=== PATIENT | female | born 1990 | race Caucasian/White ===

== ENCOUNTER 2016-05-07 19:29 | Emergency (ER) | payer OTHER ==
[2016-05-07 19:40] VITALS: BP 130/87; PULSE 85; TEMP 98.4; BMI 22.3
[2016-05-07 20:36] LABS: URINE APPEARANCE CLEAR; URINE BILIRUBIN NEGATIVE (NEGATIVE); URINE COLOR LTYELLOW; URINE GLUCOSE (UA) NEGATIVE (NEGATIVE); URINE KETONE TRACE (NEGATIVE); URINE NITRITE NEGATIVE (NEGATIVE); URINE PROTEIN NEGATIVE (NEGATIVE); URINE UROBILINOGEN NEGATIVE E.U./dl (0.2-1.0)
[2016-05-07 20:37] LABS: URINE BLOOD 2+ (NEGATIVE); URINE LEUK ESTERASE 2+ (NEGATIVE)
[2016-05-07 20:38] LABS: URINE BACTERIA RARE /hpf (NONE SEEN); URINE HYALINE CAST 3 /lpf; URINE MUCUS RARE; URINE RBC 12 /hpf (0-3); URINE WBC 5 /hpf (3-5)
--- NOTE | 2016-05-07 20:43 | PDOC ---
History of Present Illness - General Chief Complaint: Sore Throat Stated Complaint: SORE THROAT/EMPLOYEE Time Seen by Provider: 05/07/16 19:43 History Source: Patient Exam Limitations: No Limitations - History of Present Illness Initial Comments: 05/07/16 20:29 25yo Female patient presents to ED c/o sore throat x 2 days. Patient states last night experiencing sore throat which progressed to fatigue, hot flashes, SOB, chest heaviness with coughing today while at work. OTC: Tylenol cough and cold with minimal relief. LNMP: 1 month ago. 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 Denies any other complaints. Timing/Duration: reports: changing over time Severity: reports: moderate Possible Cause: Yes: illness exposure Modifying Factors: worse with: activity, albuterol inhaler, albuterol nebulizer , antibiotics, coughing, lying down, oxygen, rest, other Associated Symptoms: reports: cough, muscle aches, nasal congestion, shortness of breath, sore throat Aspirin Received prior to arrival: No: no aspirin today, unknown, 81 mg x 1, 81 mg x 2, 81 mg x 3, 81 mg x 4, 325 mg x 1, provided at home, provided by EMS, provided by ED ASA Contraindications(Core Measure): No: Allergy, Other, Active Blding w/i 24 hrs., Plavix, Receiving Warfarin Beta Ilsa Given by EMS(Core Measure): No Beta Ilsa Taken at Home(Core Measure): No Beta Ilsa Not Indicated at this Time(Core Measure): No Past History - Travel Traveled outside of the country in the last 30 days: No Close contact w/someone who was outside of country & ill: No - Past Medical History Allergies/Adverse Reactions: Allergies Allergy/AdvReac Type Severity Reaction Status Date / Time No Known Allergies Allergy Verified 05/07/16 19:38 Home Medications: Ambulatory Orders Azithromycin [Zithromax -] 250 mg PO DAILY #4 tablet 05/07/16 Norgestimate-Ethinyl Estradiol [Ortho Tri-Cyclen Lo Tablet] 1 each PO DAILY - Immunization History Immunization Up to Date: Yes - Psycho/Social/Smoking Cessation Hx Anxiety: No Suicidal Ideation: No Smoking History: Never smoked Hx Alcohol Use: No Drug/Substance Use Hx: No Respiratory Specific PMHX - Complaint Specific PMHX Angina: No Bronchitis: No Pneumonia: No Pulmonary Embolus: No TB (Tuberculosis): No Review of Systems - Review of Systems Able to Perform ROS?: Yes Is the patient limited Green[place]ic proficient: No Constitutional: Yes: Malaise. No: Chills, Fever Respiratory: Yes: Cough, Shortness of Breath Cardiac (ROS): Yes: Chest Tightness (w coughing) ABD/GI: No: Constipated, Diarrhea, Nausea, Vomiting : No: Dysuria, Discharge, Frequency, Flank Pain, Hematuria, Pain, Urgency Musculoskeletal: Yes: Muscle Pain. No: Back Pain Integumentary: No: Rash, Sweating Neurological: No: Headache, Weakness, Dizziness All Other Systems: Reviewed and Negative *Physical Exam - Vital Signs Last Vital Signs Temp Pulse Resp BP Pulse Ox 98.4 F 85 18 130/87 99 05/07/16 19:39 05/07/16 19:39 05/07/16 19:39 05/07/16 19:39 05/07/16 19:39 - Physical Exam General Appearance: Yes: Nourished, Appropriately Dressed. No: Apparent Distress, Mild Distress, Moderate Distress, Severe Distress HEENT: positive: EOMI, XIMENA, Normal ENT Inspection, Normal Voice, Symmetrical, TMs Normal, Pharynx Normal. negative: Pharyngeal Erythema, Tonsillar Exudate, Tonsillar Erythema, Nasal Congestion, Rhinorrhea, TM Bulging, TM Dull, TM Erythema Neck: positive: Trachea midline, Normal Thyroid, Supple, Lymphadenopathy (R), Lymphadenopathy (L). negative: Tender, Rigid, Decreased range of motion, Stridor, Tender lateral, Tender midline Respiratory/Chest: positive: Lungs Clear, Normal Breath Sounds. negative: Respiratory Distress, Accessory Muscle Use, Labored Respiration, Rapid RR Cardiovascular: positive: Regular Rhythm, Regular Rate Gastrointestinal/Abdominal: positive: Normal Bowel Sounds, Soft Musculoskeletal: positive: Normal Inspection. negative: CVA Tenderness Extremity: positive: Normal Capillary Refill, Normal Inspection, Normal Range of Motion Integumentary: positive: Normal Color, Dry, Warm Neurologic: positive: mobile marketing specialist II-XII NML intact, Fully Oriented, Alert, Normal Mood/ Affect, Normal Response, Motor Strength 5/5 *DC/Admit/Observation/Transfer Diagnosis at time of Disposition: Viral pharyngitis - Discharge Dispostion Disposition: HOME Condition at time of disposition: Stable Admit: No - Prescriptions Prescriptions: Azithromycin [Zithromax -] 250 mg PO DAILY #4 tablet - Referrals Referrals: Elyse Carmichael [Primary Care Provider] - - Patient Instructions Printed Discharge Instructions: DI for Viral Pharyngitis Additional Instructions: FOLLOW UP WITH YOUR PRIMARY CARE PROVIDER. CALL TO SCHEDULE APPOINTMENT. DRINK LOTS OF WATER. MOTRIN OR TYLENOL FOR PAIN NEEDED. IF SYMPTOMS WORSEN, RETURN FOR FURTHER EVALUATION. TAKE MEDICATIONS PRESCRIBED. Print Language: [place] - Post Discharge Activity Work/School Note: Back to Work
[2016-05-07] MEDS ORDERED: AZITHROMYCIN 250 MG TABLET (FP) PO ONE (20:55)
[2016-05-07] MEDS ORDERED: IBUPROFEN 600 MG TABLET (FP) PO ONE ×2 (20:56→20:59)
[2016-05-07] MEDS ORDERED: AZITHROMYCIN 250 MG TABLET (FP) ONE (20:59)
== END 2016-05-07 21:11 | disposition home or self-care (01) ==
LOC: JER 19:29
DX: J02.9 Acute pharyngitis, unspecified (principal); B97.89 Other viral agents as the cause of diseases classified elsewhere
CPT/HCPCS: 81003; 81015; 84703; 87070; 87430; 87804; 99281-25

== ENCOUNTER 2017-03-30 13:08 | Emergency (ER) | payer OTHER ==
[2017-03-30 13:12] VITALS: BMI 24.9
--- NOTE | 2017-03-30 13:24 | PDOC ---
History of Present Illness - General History Source: Patient Exam Limitations: No Limitations - History of Present Illness Initial Comments: 03/30/17 15:42 The patient is a 26 year old female with a significant PMH of migraines who presents to the emergency department with chest pressure beginning approximately approximately 6 hours ago. She describes her chest pressure as localized in the upper chest, which is aggravated by exertion and alleviated by lying flat. The patient denies shortness of breath, headache and dizziness. Denies fever, chills, nausea, vomit, diarrhea and constipation. Denies dysuria, frequency, urgency and hematuria. Allergies: NKA Past surgical history: Tonsillectomy. Social history: No reported cigarette, alcohol, or drug use. PCP: None reported. <Christiano Watson - Last Filed: 03/30/17 15:42> <Medina Galvez - Last Filed: 04/02/17 13:57> - General Chief Complaint: Chest Pain Stated Complaint: CHEST PAIN Time Seen by Provider: 03/30/17 13:22 Past History <Christiano Watson - Last Filed: 03/30/17 15:42> - Past Medical History COPD: No Other medical history: MIGRAINES - Immunization History Immunization Up to Date: Yes - Suicide/Smoking/Psychosocial Hx Smoking History: Never smoked Information on smoking cessation initiated: No Hx Alcohol Use: No Drug/Substance Use Hx: No Substance Use Type: None <Medina Galvez - Last Filed: 04/02/17 13:57> - Past Medical History Allergies/Adverse Reactions: Allergies Allergy/AdvReac Type Severity Reaction Status Date / Time No Known Allergies Allergy Verified 03/30/17 13:09 Home Medications: Ambulatory Orders Norgestimate-Ethinyl Estradiol [Ortho Tri-Cyclen Lo Tablet] 1 each PO DAILY Review of Systems - Review of Systems Able to Perform ROS?: Yes Comments:: 03/30/17 15:43 GENERAL/CONSTITUTIONAL: No fever or chills. No weakness. HEAD, EYES, EARS, NOSE AND THROAT: No change in vision. No ear pain or discharge. No sore throat. CARDIOVASCULAR: (+) Chest pressure. No shortness of breath. RESPIRATORY: No cough, wheezing, or hemoptysis. GASTROINTESTINAL: No nausea, vomiting, diarrhea or constipation. GENITOURINARY: No dysuria, frequency, or change in urination. MUSCULOSKELETAL: No joint or muscle swelling or pain. No neck or back pain. SKIN: No rash NEUROLOGIC: No headache, vertigo, loss of consciousness, or change in strength/ sensation. ENDOCRINE: No increased thirst. No abnormal weight change. HEMATOLOGIC/LYMPHATIC: No anemia, easy bleeding, or history of blood clots. ALLERGIC/IMMUNOLOGIC: No hives or skin allergy. <Christiano Watson - Last Filed: 03/30/17 15:42> *Physical Exam - Vital Signs Last Vital Signs Temp Pulse Resp BP Pulse Ox 98.1 F 81 18 118/71 98 03/30/17 14:34 03/30/17 14:34 03/30/17 14:34 03/30/17 14:34 03/30/17 14:34 - Physical Exam Comments: 03/30/17 15:43 GENERAL: Awake, alert, and fully oriented, in no acute distress HEAD: No signs of trauma EYES: PERRLA, EOMI, sclera anicteric, conjunctiva clear ENT: Auricles normal inspection, hearing grossly normal, nares patent, oropharynx clear without exudates. Moist mucosa NECK: Normal ROM, supple, no lymphadenopathy, JVD, or masses LUNGS: Breath sounds equal, clear to auscultation bilaterally. No wheezes, and no crackles HEART: Regular rate and rhythm, normal S1 and S2, no murmurs, rubs or gallops ABDOMEN: Soft, nontender, normoactive bowel sounds. No guarding, no rebound. No masses EXTREMITIES: Normal range of motion, no edema. No clubbing or cyanosis. No cords, erythema, or tenderness NEUROLOGICAL: Cranial nerves II through XII grossly intact. Normal speech, normal gait SKIN: Warm, Dry, normal turgor, no rashes or lesions noted. <Christiano Watson - Last Filed: 03/30/17 15:42> - Vital Signs Last Vital Signs Temp Pulse Resp BP Pulse Ox 98.4 F 94 H 18 144/88 100 03/30/17 13:10 03/30/17 13:10 03/30/17 13:10 03/30/17 13:10 03/30/17 13:10 <Medina Galvze - Last Filed: 04/02/17 13:57> Heart Score/ECG Review - ECG Impressions Comment:: EKG 13:17- NSR 84 bpm, no acute ST/T changes <Medina Galvez - Last Filed: 04/02/17 13:57> ED Treatment Course - LABORATORY CBC & Chemistry Diagram: 03/30/17 13:37 03/30/17 13:37 - ADDITIONAL ORDERS Additional order review: Laboratory Results 03/30/17 03/30/17 13:37 13:37 Sodium 139 Potassium 4.3 Chloride 103 Carbon Dioxide 31 Anion Gap 5 L BUN 14 Creatinine 0.7 Creat Clearance w eGFR > 60 Random Glucose 100 Calcium 9.2 Total Bilirubin 0.5 D AST 15 ALT 19 Alkaline Phosphatase 54 Creatine Kinase 195 H Creatine Kinase Index 0.5 CK-MB (CK-2) 1.0 Troponin I < 0.02 Total Protein 7.7 Albumin 4.1 Serum , Qual Negative 03/30/17 13:37 RBC 3.94 MCV 93.1 MCHC 33.6 RDW 12.6 MPV 8.2 Neutrophils % 67.9 Lymphocytes % 22.5 D Monocytes % 8.1 Eosinophils % 0.9 Basophils % 0.6 <Christiano Watson - Last Filed: 03/30/17 15:42> - LABORATORY CBC & Chemistry Diagram: 03/30/17 13:37 03/30/17 13:37 <Medina Galvez - Last Filed: 04/02/17 13:57> Medical Decision Making - Medical Decision Making Pt is low risk for PE and ACS by clinical evaluation. Stable for DC home. <Medina Galvez - Last Filed: 04/02/17 13:57> *DC/Admit/Observation/Transfer - Attestations Scribe Attestion: 03/30/17 15:43 Documentation prepared by Christiano Watson, acting as medical receptionist medical assistant for Medina Galvez MD. <Christiano Watson - Last Filed: 03/30/17 15:42> - Discharge Dispostion Admit: No <Medina Galvez - Last Filed: 04/02/17 13:57> Diagnosis at time of Disposition: Atypical chest pain - Discharge Dispostion Disposition: HOME Condition at time of disposition: Stable - Patient Instructions Printed Discharge Instructions: DI for Atypical Chest Pain
[2017-03-30 13:49] LABS: BASO % 0.6 % (0-2.0); EOS % 0.9 % (0-4.5); HEMATOCRIT 36.7 % (32.4-45.2); HEMOGLOBIN 12.3 GM/dL (10.7-15.3); LYMPH % 22.5 % (8-40); MCH 31.3 pg (25.7-33.7); MCHC 33.6 g/dl (32.0-36.0); MEAN CELL VOLUME 93.1 fl (80-96); MEAN PLT VOLUME 8.2 fl (7.5-11.1); MONO % 8.1 % (3.8-10.2); NEUT % 67.9 % (42.8-82.8); PLATELET COUNT 261 K/MM3 (134-434); RBC 3.94 M/mm3 (3.60-5.2); RDW 12.6 % (11.6-15.6); WHITE BLOOD COUNT 9.5 K/mm3 (4.0-10.0)
[2017-03-30 14:23] LABS: ALBUMIN 4.1 g/dl (3.4-5.0); ANION GAP 5 (8-16); BILIRUBIN,TOTAL 0.5 mg/dL (0.2-1.0); BLOOD UREA NITROGEN 14 mg/dL (7-18); CALCIUM 9.2 mg/dL (8.5-10.1); CHLORIDE 103 mmol/L (98-107); CO2 31 mmol/L (21-32); CREATININE 0.7 mg/dL (0.55-1.02); GLUCOSE,RANDOM 100 mg/dL (74-106); POTASSIUM 4.3 mmol/L (3.5-5.1); SGOT/AST 15 U/L (15-37); SGPT/ALT 19 U/L (12-78); SODIUM 139 mmol/L (136-145); TOT PROT 7.7 g/dl (6.4-8.2)
[2017-03-30 14:26] LABS: ALK PHOS 54 U/L (45-117)
[2017-03-30 14:35] VITALS: PULSE 81; TEMP 98.1
[2017-03-30] MEDS ORDERED: SODIUM CHLORIDE 1,000 ML IV STA (15:41)
[2017-03-30 15:48] VITALS: BP 128/81
--- NOTE | 2017-03-31 09:33 | EKG ---
Test Reason : Blood Pressure : / mmHG Vent. Rate : 084 BPM Atrial Rate : 084 BPM P-R Int : 120 ms QRS Dur : 078 ms QT Int : 390 ms P-R-T Axes : 005 045 038 degrees QTc Int : 460 ms NORMAL SINUS RHYTHM NORMAL ECG NO PREVIOUS ECGS AVAILABLE Confirmed by DOTTY ZAMBRANO, MILO ([id number]) on 03/31/2017 9:33:14 AM Referred By: Confirmed By:MILO STORM MD
== END 2017-03-30 15:48 | disposition home or self-care (01) ==
LOC: JER 13:08
DX: R07.89 Other chest pain (principal)
CPT/HCPCS: 36415; 71045-TC; 80053; 82550; 82553; 84484; 84703; 85025; 93005; 93010; 99285-25